=== PATIENT | female | born 1950 | race Caucasian/White ===

== ENCOUNTER 2023-08-20 10:25 | Day surgery (SDC) | payer OTHER ==
[2023-08-17 11:39] LABS: Absolute Basophils 0.1 K/uL (0-0.5); Absolute Eosinophils 0.2 K/uL (0-0.5); Absolute Lymphocytes (CBC) 3.1 K/uL (0.7-4.9); Absolute Monocytes 0.6 K/uL (0.1-1.3); Absolute Neutrophil 3.6 K/uL (1.8-8.0); Eosinophils % 2.2 % (0-4.4); Hemoglobin 12.8 g/dL (12.0-15.0); MCH 27.7 pg (27.0-35.0); MCHC 33.6 g/dL (32.0-36.0); MCV 82.4 fL (80-100); MPV 7.5 fL (7.6-11.3); Monocytes % 8.2 % (3.3-12.3); Neutrophils % 47.6 % (41.7-73.7); Platelets 336 thou/uL (152-406); RBC Red Blood Cell Count 4.62 M/uL (3.86-4.86); Red Cell Distribution Width 14.9 % (12.1-15.2)
[2023-08-17 11:43] LABS: PTT, Activated Partial Thromb 26.8 SECONDS (24.3-36.9)
--- NOTE | 2023-08-17 11:44 | RAD REPORT ---
EXAM DESCRIPTION: Fidel Coffman (2 Views)08/17/2023 11:38 am CLINICAL HISTORY: Preop for hand surgery COMPARISON: None FINDINGS: The lungs appear clear of acute infiltrate. The heart is normal size IMPRESSION: No acute abnormalities displayed
[2023-08-17 11:51] LABS: Anion Gap 8.5 mEq/L (5.0-15.0); Potassium 4.5 mEq/L (3.5-5.1)
--- NOTE | 2023-08-18 13:10 | EKG ---
Test Date: 2023-08-17 Test Time: 11:13:44 Glass Silverer: PREO MEASUREMENT RESULTS: Intervals: Rate: 76 LA: 136 QRSD: 76 QT: 382 QTc: 429 Filley: P: 71 LA: 136 QRS: 64 T: 62 INTERPRETIVE STATEMENTS: Normal sinus rhythm Normal ECG No previous ECG available for comparison Electronically Signed On 08-18-23 13:06:25 CDT by Steven Blakely
[2023-08-20] MEDS ORDERED: VANCOMYCIN 1 GM/VIAL ONE (10:44)
[2023-08-20] MEDS ORDERED: NA CHLORIDE 0.9% 0 ML ONE (10:46)
[2023-08-20] MEDS: NA CHLORIDE 0.9% 1,000 ML ONE (10:59)
[2023-08-20] MEDS ORDERED: ONDANSETRON 4 MG/2 ML VIAL ONE (11:17)
[2023-08-20] MEDS ORDERED: propofoL 200 MG/20 ML VIAL IV ONE ×3 (11:17→12:02)
[2023-08-20] MEDS ORDERED: LIDOCAINE 2% MPF 5 ML VIAL ONE (11:17)
[2023-08-20] MEDS ORDERED: FENTANYL CITR 100 MCG/2 ML ONE (11:18)
[2023-08-20] MEDS: CEFAZOLIN SODIUM 1 GM/VIAL ONE (11:32)
[2023-08-20] MEDS: BUPIVACAINE 0.25% PF 30 ML VIAL ONE (12:07)
--- NOTE | 2023-08-20 19:18 | P.BOP ---
Preoperative diagnosis: right ring finger trigger digit Postoperative diagnosis: same Primary procedure: right ring finger A1 estee release Tax Manager Public: NONE,NONE Estimated blood loss: 3 cc Specimen: none Findings: see dictation Anesthesia: General Complications: None Implants: none Fluids & blood products: per anesthesia record Transferred to: Recovery Room Condition: Good
[2023-08-21 14:42] VITALS: BP 112/52; TEMP 98; O2SAT 100
== END 2023-08-20 13:34 | disposition home or self-care (01) ==
LOC: OR 10:25
PROVIDERS: ATTEND Orthopaedic Surgery Sports Medicine
PROC: 0LN70ZZ Release Right Hand Tendon, Open Approach (ICD-10-PCS; principal; 2023-08-20 11:30)
DX: M65.341 Trigger finger, right ring finger (principal); I10 Essential (primary) hypertension; F32.A Depression, unspecified; K21.9 Gastro-esophageal reflux disease without esophagitis
CPT/HCPCS: 93005; 85025; 80048; 36415; 85610; 85730; 71046; 26055; J2704 ×2; J2001; J3010; J2405; J7030; J0690; J7050